=== PATIENT | female | born 1995 | race Caucasian/White ===

== ENCOUNTER 2017-05-14 05:49 | Inpatient (IN) | payer OTHER ==
[2017-05-14] VITALS (47 sets, daily range): BP systolic 121–166; BP diastolic 68–108
[~2017-05-14] VITALS: Ht 154.9 cm; Wt 65.4 kg
[2017-05-14 07:23] LABS: MEAN CORPUSCULAR HEMOGLOBIN 28.8 pg (27.0-33.0); MEAN CORPUSCULAR HGB CONC 33.6 g/dl (32.0-36.5); MEAN CORPUSCULAR VOLUME 85.7 fl (80.0-96.0); PLATELET COUNT, AUTOMATED 184 10^3/uL (150-450); RED CELL DISTRIBUTION WIDTH 12.6 % (11.5-14.5)
[2017-05-14 07:44] LABS: ALT/SGPT 28 U/L (12-78); AST/SGOT 21 U/L (7-37); BILIRUBIN,TOTAL 0.3 MG/DL (0.2-1.0); CREATININE FOR GFR 0.63 MG/DL (0.55-1.02); GLOMERULAR FILTRATION RATE > 60.0 (>60); URIC ACID 3.9 MG/DL (2.6-6.0)
[2017-05-14] MEDS ORDERED: NALBUPHINE HCL 10 MG/ML AMP (J2300) IV ONE (08:15)
[2017-05-14] MEDS ORDERED: PROMETHAZINE INJ 25 MG/ML VIAL (J2550) IV ONE (08:15)
[2017-05-14] MEDS: LR 1,000 ML IV SCH ×4 (08:17→19:14)
[2017-05-14 08:59] LABS: BASO % 0.3 % (0.0-1.0); EOS # 0.1 10^3/uL (0.0-0.50); EOS % 0.9 % (0.0-3.0); IMMATURE GRANULOCYTE % 1.2 % (0-0); LYMPH # 1.5 10^3/uL (1.5-6.5); LYMPH % 10.9 % (24.0-44.0); MONO % 7.3 % (0.0-5.0); NEUTROPHILS # 11.2 10^3/uL (1.8-7.7); NEUTROPHILS % 79.4 % (36.0-66.0)
[2017-05-14 09:02] LABS: DIFF SLIDE NUMBER 153
[2017-05-14] MEDS ORDERED: OXYTOCIN 30 UNITS IN 0.9% NaCl 500ML IV BAG (J2590) As Ordered ONE (11:14)
[2017-05-14] MEDS ORDERED: OXYTOCIN DRIP 30 UNITS in APPROPRIATE DILUENT 1 EA IV SCH (11:15)
[2017-05-14] MEDS ORDERED: FENTANYL 2MCG/ML ROPIVACAINE 0.2% IN 0.9% NACL 200ML IVBAG As Ordered ONE (12:39)
[2017-05-14] MEDS ORDERED: REFRIGERATOR IV KEYS XX PRN (13:45)
[2017-05-14] MEDS ORDERED: diphenhydrAMINE INJ 50MG/ML VIAL (J1200) IV PRN (13:45)
[2017-05-14] MEDS ORDERED: NALOXONE INJ 0.4 MG/1 ML VIAL (J2310) IV PRN (13:45)
[2017-05-14] MEDS ORDERED: EPIDURAL COMMENT XX SCH (13:45)
[2017-05-14] MEDS ORDERED: EPIDURAL/PCA KEYS XX PRN (13:45)
[2017-05-14] MEDS ORDERED: ONDANSETRON 4MG/2ML VIAL (J2405) IV PRN (13:45)
[2017-05-14] MEDS ORDERED: LACTATED RINGER'S 1000 ML IV PRN (13:45)
[2017-05-14] MEDS ORDERED: ePHEDrine SULFATE 25 MG/5 ML(5MG/ML) SYRINGE IV PRN (13:45)
[2017-05-14] MEDS ORDERED: FENTANYL/ROPIVACAINE/NACL BAG 200 ML EPIDURAL SCH (13:45)
[2017-05-14] MEDS ORDERED: ACETAMINOPHEN 500 MG TAB PO ONE (18:15)
[2017-05-14] MEDS ORDERED: CLINDAMYCIN 900 MG in APPROPRIATE DILUENT 1 EA IV ONE (19:15)
[2017-05-14] MEDS ORDERED: GENTAMICIN 80 MG in APPROPRIATE DILUENT 1 EA IV ONE (19:30)
[2017-05-14] MEDS ORDERED: MOM 30ML SUSPENSION UDC PO PRN (23:00)
[2017-05-14] MEDS ORDERED: ANUSOL HC CREAM 30GM TOP PRN (23:00)
[2017-05-14] MEDS ORDERED: MEASLES,MUMPS,RUBELLA VACCINE INJ (MMR-II) (90707) SC SCH (23:00)
[2017-05-14] MEDS ORDERED: DIBUCAINE 1% OINTMENT 30GM TOP PRN (23:00)
[2017-05-14] MEDS ORDERED: RHOGAM 300 MCG (1500 IU) INJ (J2790) IM SCH (23:00)
[2017-05-14] MEDS ORDERED: METHYLERGONOVINE MALEATE 0.2 MG TAB PO PRN (23:00)
[2017-05-14] MEDS ORDERED: DOCUSATE SODIUM 100 MG CAP PO PRN (23:00)
[2017-05-14 23:10] LABS: CORD GAS HCO3 A 22.9 MEQ/L; CORD GAS O2 SAT A 65.3 %; CORD GAS PCO2 A 39.9 mmHg; CORD GAS PH A 7.377 UNITS; CORD GAS PO2 A 27.9 mmHg; CORD GAS TCO2 A 24.1 MEQ/L
[2017-05-14 23:12] LABS: CORD GAS HCO3 V 20.6 MEQ/L; CORD GAS O2 SAT V 63.7 %; CORD GAS PCO2 V 36.5 mmHg; CORD GAS PH V 7.369 UNITS; CORD GAS PO2 V 27.3 mmHg; CORD GAS SBC V 20.3 MEQ/L; CORD GAS TCO2 V 21.7 MEQ/L
[2017-05-15 01:37] VITALS: BP 131/83
[2017-05-15] MEDS: IBUPROFEN 800 MG TAB PO PRN ×2 (01:47→19:34)
[2017-05-15] MEDS ORDERED: OXYTOCIN INJ 10 UNITS/ML VIAL (J2590) IV ONE ×2 (06:00→06:15)
[2017-05-15] MEDS: ACETAMINOPHEN 500 MG TAB PO PRN ×2 (06:00→14:36)
[2017-05-15] MEDS ORDERED: GENTAMICIN 80 MG in APPROPRIATE DILUENT 1 EA IV ONE (06:00)
[2017-05-15] MEDS ORDERED: CLINDAMYCIN 900 MG in APPROPRIATE DILUENT 1 EA IV ONE (06:00)
[2017-05-15 06:34] VITALS: BP 140/93
--- NOTE | 2017-05-15 06:49 | IPN ---
DATE: 05/15/2017 SUBJECTIVE: This lady is a 21-year-old 4, now para 1, who was admitted in spontaneous labor with active contractions and had episodes of midrange blood pressures, had chemistry suggesting preeclampsia (E). She was augmented with Pitocin and she was admitted at 3 cm. At 5 cm, she developed a fever of 103.1. She was treated with intravenous (IV) fluids, Tylenol 1000 mg, reduction of the Pitocin, oxygen and antibiotic therapy. She and the baby did much better after the interventions, and she had a spontaneous vaginal delivery of a live female infant 7 pounds 10 ounces, 3460 grams, scores of 8 and 9 at one and five minutes respectively. Her temperature overnight her last elevation was 100.1 at 2318 on 05/14. This morning her temperature was 96.5, blood pressure was 140/93, respirations 20, pulse 116. She has received her second dose of antibiotic therapy in accordance with guidelines for intraamniotic infection. Baby is in intensive care unit (NICU), is doing well. Her lab values we are awaiting for her complete blood count (CBC) from this morning. Otherwise she is doing well. She is normocephalic, atraumatic. Neck full range of motions. Pupils equal and reactive to light. Distal pulses symmetric. No evidence of deep venous thrombosis (DVT), pulmonary embolism (PE) or superficial phlebitis. Lungs are clear to bases. No wheezes or rhonchi. Uterus two below. Lochia is moderate. Perineum is intact. No rashes, lesions or pruritus. No arthralgia, myalgia. No complaint cough, wheeze, shortness breath or dyspnea on exertion. No chest pain, not bleeding. Neuro complete. No incontinence, urgency or frequency. No nausea, vomiting, diarrhea or constipation. We are planning on maintaining her for 24 hours in order to evaluate her temperature. If she is normal temperature, she can be discharged. The baby will probably be maintained in NICU until discharged by mergers and acquisitions banker. The patient is requesting oral contraceptives at her six-week checkup. We will give her medications on discharge.
--- NOTE | 2017-05-15 06:55 | DN ---
DATE: 05/15/2017 This lady is a 21-year-old 4, para 0 who was admitted because of preeclampsia (E) issues, midrange blood pressures and contractions. She is group B streptococcus (GBS) negative and 40 and two weeks of gestation. She was augmented with Pitocin and she eventually developed a temperature of 103.1, at which time she had a tachycardia of 180 and had a persistent tachycardia with decreased variability. No accelerations but no decelerations were noted. She was given an intravenous (IV) bolus of fluids, Tylenol 1000 mg, started on gent including gentamicin and clindamycin as she has allergies to PENICILLIN, AMPICILLIN and CIPRO. After oxygen, bolus of fluids, IV antibiotics and decreasing the Pitocin, the heart resumed to baseline with category one strip. Contractions were improved and she eventually got fully dilated, with epidural in place, delivered a live female weighing 3460 grams 7 pounds 10 ounces, scores of 8 and 9 at one and five minutes respectively. There was a cord wrapped around the ankle times one which was disengaged at the delivery of the fetus. The fetus itself was not hot; neither was the placenta or the intrauterine contents. Placenta delivered spontaneously thereafter. Three-vessel cord, membranes and tissues intact. There was a varicosity on the patient's right-hand vulvar area which was oversewn in usual fashion with 2-0 Vicryl and [id number]. Uterus contracted well down with Pitocin. Examination of the entire vagina appeared to be normal. Cervix was intact and the sphincter was normal and intact with good tone. The patient and baby tolerating procedure well.
[2017-05-15 07:12] LABS: MEAN CORPUSCULAR HEMOGLOBIN 28.8 pg (27.0-33.0); MEAN CORPUSCULAR HGB CONC 33.4 g/dl (32.0-36.5); PLATELET COUNT, AUTOMATED 167 10^3/uL (150-450); RED CELL DISTRIBUTION WIDTH 12.7 % (11.5-14.5); WHITE BLOOD COUNT 23.1 10^3/uL (4.0-10.0)
[2017-05-15] MEDS: PRENATAL VITAMINS CHEWABLE TABLET PO SCH (07:44)
[2017-05-15 18:29] VITALS: BP 142/84
[2017-05-16] MEDS: IBUPROFEN 800 MG TAB PO PRN ×2 (06:31→16:52)
[2017-05-16 06:34] VITALS: BP 139/80
--- NOTE | 2017-05-16 07:52 | IPNPDOC ---
Progress Note Date of Service The patient was seen on 05/16/17 at 07:47. Progress Note PP day 2 Ivania is a 21yo [id number] s/p uncomplicated on 05/14 in the evening after presenting to L&D in active labor and subsequently diagnosed with pre- eclampsia withOUT severe features based on mild range bp's and protein: creatinine. In labor she developed temperature and diagnosed w/intra-amniotic infection for which her is currently in the NICU. She doing well. Pain is minimal, just cramping occasionally. Breast feeding and breast pumping well. Lochia is minimal. Tolerating regular diet, ambulating and voiding spontaneously without issue. No f/c/n/v/SOB/CP. No ULLOA/vision changes/RUQ pain. Blood pressures are normotensive to mild range, afebrile General: WDWN, resting comfortably in bed Abdomen: soft, ND, NT, fundus firm at u-2cm Extremities: no edema of BLE, no pain with palpation of calves Assessment: Ivania is a 21yo [id number] doing well on PPD 2 s/p uncomplicated on 05/14 in the evening after presenting to L&D in active labor and subsequently diagnosed with pre-eclampsia withOUT severe features based on mild range bp's and protein:creatinine. Developed intra-amniotic infection in labor. Vitals only significant for continued intermittent mild range bp's, exam benign. No s/sx of worsening pre-E. Hemodynamically stable with no evidence of infection. Plan: -routine care -tylenol/motrin prn pain -encourage breast feeding and breast pumping for in NICU -possible discharge tomorrow -given meds to take home: motrin, tylenol, colace, lanolin, dibucaine -will have need a 1 week bp check and then routine 6wk PP visit in our office Dr. Beba Claudio MD [facility] VS, I&O, 24H, Fishbone Vital Signs/I&O Vital Signs Date Time Temp Pulse Resp B/P (MAP) Pulse Ox O2 Delivery O2 Flow Rate FiO2 05/16/17 06:34 98.2 83 18 139/80 (99) Beba Claudio MD May 16, 2017 07:52
[2017-05-16] MEDS: PRENATAL VITAMINS CHEWABLE TABLET PO SCH (09:04)
[2017-05-16] MEDS: ACETAMINOPHEN 500 MG TAB PO PRN ×2 (09:05→16:52)
[2017-05-16 17:50] VITALS: BP 143/84
[2017-05-16 22:00] VITALS: BP 138/76
[2017-05-17 02:00] VITALS: BP 140/80
[2017-05-17] MEDS: IBUPROFEN 800 MG TAB PO PRN (03:38)
[2017-05-17 06:00] VITALS: BP 140/87
--- NOTE | 2017-05-17 06:51 | IPNPDOC ---
Text Note Date of Service The patient was seen on 05/17/17. NOTE PPD3 prog note States feeling well, no complaints. No heavy VB. Pain controlled. Voiding, ambulatory. Bonding well and feeding well. VSSAF CTAB RRR Ut at U-3, firm Ext no CCE a/p: Doing well. routine pp care. D/C today. Sessions VS,Romeo, I+O VS, Romeo, I+O Vital Signs Date Time Temp Pulse Resp B/P (MAP) Pulse Ox O2 Delivery O2 Flow Rate FiO2 05/17/17 06:00 97.9 95 17 140/87 (104) 98 Room Air SESSIONS,LINDEN Todd MD May 17, 2017 06:51
--- NOTE | 2017-05-17 06:55 | DS.PDOC ---
Discharge Summary General Date of Admission May 14, 2017 at 07:55 Date of Discharge [id number] Discharge Summary Discharge Summary Admission Diagnosis: active labor at term Discharge Diagnosis: s/p spontaneous vaginal delivery complicated by chorioamnionitis Condition: stable Hospital Course: Pt is a 21 yo admitted in active labor at term. The pt progressed well through labor and had an uncomplicated although chorioamnionitis was diagnosed and treated by Dr Paez. Please see delivery/ progress notes for details. On PPD#3, the pt had normal VS for >48 hours, the pt was tolerating reg diet, ambulating, pain was well controlled, minimal lochia. She was desirous of discharge and was discharged home with follow up in 6-8wks in OB clinic. Home recommendations: Nothing in vagina for 6 weeks Sessions Vital Signs/I&Os Vital Signs Date Time Temp Pulse Resp B/P (MAP) Pulse Ox O2 Delivery O2 Flow Rate FiO2 05/17/17 06:00 97.9 95 17 140/87 (104) 98 Room Air Allergies Coded Allergies: Amoxicillin (Verified Allergy, Mild, SORES, 05/14/17) Ciprofloxacin (Verified Allergy, Mild, INFLAMATION, REDNESS, 05/14/17) Penicillin G (Verified Allergy, Mild, SORES, 05/14/17) SESSIONS,LINDEN Todd MD May 17, 2017 06:55
[2017-05-17] MEDS ORDERED: PRENTAB9 PO (08:17)
[2017-05-17] MEDS ORDERED: ACET50TA PO (08:17)
[2017-05-17] MEDS ORDERED: COLA100C5 PO (08:18)
[2017-05-17] MEDS ORDERED: IBUP-1114 PO (08:21)
[2017-05-17] MEDS: PRENATAL VITAMINS CHEWABLE TABLET PO SCH (08:35)
[2017-05-17] MEDS: ACETAMINOPHEN 500 MG TAB PO PRN (08:35)
== END 2017-05-17 10:00 | disposition home or self-care (01) | DRG 775 ==
LOC: M LDO 05:49 → M LDI 07:55 → M OBS 05-15 01:34
PROVIDERS: ADMIT Obstetrics & Gynecology; ATTEND Obstetrics & Gynecology
PROC: 10907ZC Drainage of Amniotic Fluid, Therapeutic from Products of Conception, Via Natural or Artificial Opening (ICD-10-PCS; 2017-05-14)
PROC: 10E0XZZ Delivery of Products of Conception, External Approach (ICD-10-PCS; principal; 2017-05-15)
PROC: 0UQMXZZ Repair Vulva, External Approach (ICD-10-PCS; 2017-05-15)
DX: O48.0 Post-term pregnancy (principal); O41.1230 Chorioamnionitis, third trimester, not applicable or unspecified; Z37.0 Single live birth; Z3A.40 40 weeks gestation of pregnancy; Z79.899 Other long term (current) drug therapy; O14.04 Mild to moderate pre-eclampsia, complicating childbirth; Z88.0 Allergy status to penicillin; Z88.1 Allergy status to other antibiotic agents; O69.82X0 Labor and delivery complicated by other cord entanglement, without compression, not applicable or unspecified; O22.13 Genital varices in pregnancy, third trimester